=== PATIENT | male | born 1985 | race Caucasian/White ===

== ENCOUNTER 2018-02-28 15:41 | Emergency (ER) | payer SELFPAY ==
[2018-02-28] MEDS: FAMOTIDINE 20 MG/2 ML VIAL IVP (16:44)
[2018-02-28 16:45] LABS: ADD MAN DIFF? NO
[2018-02-28 16:46] LABS: BASO # 0.1 x10^3/uL (0.0-0.2); BASO % 1 % (0-3); EOS # 0.3 x10^3/uL (0.0-0.7); EOS % 5 % (0-3); HEMATOCRIT 38.5 % (39.0-53.0); HEMOGLOBIN 13.2 g/dL (13.0-17.5); LYMPH # 1.5 x10^3/uL (1.0-4.8); LYMPH % 26 % (24-48); MEAN CORPUSCULAR HEMOGLOBIN 31 pg (25-35); MEAN CORPUSCULAR HGB CONC 34 g/dL (31-37); MEAN CORPUSCULAR VOLUME 89 fL (79-100); MONO # 0.5 x10^3/uL (0.0-1.1); MONO % 9 % (0-9); NEUT # 3.4 x10^3uL (1.8-7.7); NEUT % 58 % (31-73); PLATELET COUNT 191 x10^3/uL (140-400); RED BLOOD COUNT 4.31 x10^6/uL (4.30-5.70); RED CELL DISTRIBUTION WIDTH 13.9 % (11.5-14.5); WHITE BLOOD COUNT 5.8 x10^3/uL (4.0-11.0)
[2018-02-28] MEDS: KETOROLAC 30 MG/ML INJ. IV (16:47)
[2018-02-28 17:07] LABS: ANION GAP 4 (6-14); BLOOD UREA NITROGEN 13 mg/dL (8-26); BUN/CREATININE RATIO 13 (6-20); CALCIUM 8.2 mg/dL (8.5-10.1); CARBON DIOXIDE 28 mmol/L (21-32); CHLORIDE 108 mmol/L (98-107); GFR 86.1; GLUCOSE 111 mg/dL (70-99); POTASSIUM 4.3 mmol/L (3.5-5.1); SODIUM 140 mmol/L (136-145)
[2018-02-28 17:12] LABS: ALBUMIN 3.1 g/dL (3.4-5.0); ALK PHOS 123 U/L (46-116); ALT (SGPT) 25 U/L (16-63); AST (SGOT) 24 U/L (15-37); LIPASE 98 U/L (73-393); TOTAL BILIRUBIN 0.3 mg/dL (0.2-1.0); TOTAL PROTEIN 6.2 g/dL (6.4-8.2)
[2018-02-28] MEDS ORDERED: FAMOTIDINE 20 MG/2 ML VIAL IVP (17:15)
[2018-02-28] MEDS: oxyCODONE IR 5 MG TABLET PO (17:40)
== END 2018-02-28 17:47 | disposition home or self-care (01) ==
LOC: ER 15:41
DX: R10.11 Right upper quadrant pain (principal); R11.2 Nausea with vomiting, unspecified; F90.9 Attention-deficit hyperactivity disorder, unspecified type; K21.9 Gastro-esophageal reflux disease without esophagitis; Z90.49 Acquired absence of other specified parts of digestive tract; Z88.6 Allergy status to analgesic agent
CPT/HCPCS: 36415; 74022; 80053; 83690; 85025; 96374; 96375; 99285-25; J1885; S0028